=== PATIENT | female | born 1975 | race Caucasian/White ===

== ENCOUNTER 2021-05-12 15:18 | Outpatient (REF) | payer MEDICAID, SELFPAY ==
--- NOTE | 2021-05-12 15:00 | PAPFT_PTH ---
PATIENT: Deena Kuhn LOC: [facility] U#:[id number] AGE/SX: 46/F ROOM: RE05/12/[address]: Lilliana Solorzano : 1975 BED: DIS: 05/12/2021 SPEC #: [id number] RECD: 05/12/21 17:31 STATUS: DORENE BRITTANY #: [id number] DEE: 05/12/21 15:[address]: Lilliana Solorzano DEPT: [facility] Cytology RECD BY: Grace Pascual ENTERED: 05/12/21 17:32 SP TYPE: PAPFT BENY DR: Unknown,Unknown Tissues: 1 - CX/ENDOCX FOR PAP SMEARS Procedures: PAP THIN PREP/UVM Screening HPV DNA PROBE Comments: [id number]
[2021-05-14 15:08] LABS: Chlamydia Result Negative (Negative); GC Result Negative (Negative)
== END 2021-05-12 15:19 | disposition home or self-care (01) ==
LOC: LBN 15:18
PROVIDERS: Visit Provider Obstetrics & Gynecology Gynecology
DX: Z11.3 Encounter for screening for infections with a predominantly sexual mode of transmission (principal); Z12.4 Encounter for screening for malignant neoplasm of cervix; Z11.51 Encounter for screening for human papillomavirus (HPV)
CPT/HCPCS: 87491; 87591; 88142; 87624

== ENCOUNTER → 2021-11-24 01:34 | Outpatient (CLI) | payer MEDICAID, SELFPAY ==
--- NOTE | 2021-11-24 07:15 | DI.US_ITS ---
Exam(s) US PELVIS EXAM: US PELVIS CLINICAL HISTORY: fibroid uterus,D25.9 TECHNIQUE: Ultrasound of the pelvis was performed transabdominally. COMPARISON: No exams were available for comparison FINDINGS: UTERUS: Prominent size Measures 16 cm length x 10 cm AP x 14 cm wide. There is a very large fibroid centrally and fundal measuring approximately 11.7 x 11.0 x 8 cm.This pr events visualization the endometrium. Ovaries were also not able to be identified. CUL-DE-SAC: No free fluid evident. IMPRESSION: 1. The uterus is grossly enlarged, with measurements as above. 2. There is a large solitary 11.7 x 11.0 x 8 cm fibroid which occupies prominent area in the uterus a nd prevents visualization of the endometrium. 3. Ovaries were not able to be identified due to the grossly enlarged uterus. No free fluid evident. DATA REPOSITORY:
== END ==
PROVIDERS: Visit Provider Obstetrics & Gynecology
DX: D25.9 Leiomyoma of uterus, unspecified (principal); N85.2 Hypertrophy of uterus
CPT/HCPCS: 76856

== ENCOUNTER 2022-04-17 09:59 | Outpatient (REF) | payer MEDICAID, SELFPAY ==
--- NOTE | 2022-04-17 09:30 | ENDOMET_PTH ---
PATIENT: Deena Kuhn LOC: [facility] #:[id number] AGE/SX: 47/F ROOM: RE04/17/[address]: Lilliana Solorzano : 1975 BED: DIS: 04/17/2022 SPEC #: [id number] RECD: 04/17/22 12:49 STATUS: DORENE REChristopher #: [id number] DEE: 04/17/22 09:[address]: Lilliana Solorzano DEPT: Surgical Specimen RECD BY: Grace Pascual Tissues: 1 - ENDOMETRIUM BX/RUBEN Procedures: GROSS AND MICRO LEVEL 4 Comments: [id number]
== END 2022-04-17 10:00 | disposition home or self-care (01) ==
LOC: LBN 09:59
PROVIDERS: Visit Provider Obstetrics & Gynecology Gynecology
DX: D25.9 Leiomyoma of uterus, unspecified (principal); N84.0 Polyp of corpus uteri; N85.8 Other specified noninflammatory disorders of uterus
CPT/HCPCS: 88305

== ENCOUNTER 2022-06-12 12:39 | Outpatient (CLI) | payer MEDICAID, SELFPAY ==
[2022-06-12 12:43] LABS: TSH (W/Ref FT4) 2.29 uIU/mL (0.36-3.74)
== END 2022-06-12 12:40 | disposition home or self-care (01) ==
LOC: LBO 12:40
PROVIDERS: Visit Provider Obstetrics & Gynecology
DX: N92.0 Excessive and frequent menstruation with regular cycle (principal); N93.8 Other specified abnormal uterine and vaginal bleeding
CPT/HCPCS: 36415; 82670; 83001; 83520; 84443

== ENCOUNTER 2022-06-29 02:27 | Outpatient (CLI) | payer MEDICAID, SELFPAY ==
[2022-06-30 19:17] LABS: Estradiol 143 pg/mL (See Note)
[2022-07-01 18:30] LABS: Antimullerian Hormone 0.22 ng/mL (<2.6)
== END 2022-06-29 02:28 | disposition home or self-care (01) ==
LOC: LBO 02:27
PROVIDERS: Visit Provider Obstetrics & Gynecology
DX: N93.8 Other specified abnormal uterine and vaginal bleeding; N97.8 Female infertility of other origin; N92.5 Other specified irregular menstruation
CPT/HCPCS: 36415; 82670; 83520

== ENCOUNTER → 2023-07-28 03:18 | Outpatient (CLI) | payer MEDICAID, SELFPAY ==
--- NOTE | 2023-07-28 | DI.MAMMO_ITS ---
Exam(s) MAMMO SCREENING EXAM: MAMMO SCREENING CLINICAL HISTORY: Z12.31 Screening TECHNIQUE: Mammograms were interpreted according to the usual protocol including computer analysis w [employer] CAD system, tomosynthesis and C-view imaging. COMPARISON: Patient has outside examinations which are not yet available. FINDINGS: The breasts are composed of heterogeneously dense fibroglandular densities, Breast Density category C . No suspicious masses or suspicious microcalcifications are seen. No skin thickening or abnormal axillary lymph nodes are seen. IMPRESSION: BI-RADS Category 1, Negative mammogram. Yearly screening mammography is recommended. Breast Density Category C, heterogeneously Dense. The mammogram demonstrates the patient's breast tissue is dense. Dense breast tissue is very common a nd is not abnormal but dense breast tissue can make it harder to find cancer on a mammogram. Also, de nse breast tissue may increase breast cancer risk. This information about the result of the mammogram report was provided to the patient to raise their awareness. Use this report when you speak with the patient about their risks for breast cancer, which includes their family history. At that time, you may recommend additional screening tests (Ultrasound or MRI) as they might be useful based on their r isk. A negative radiographic report should not delay biopsy if a dominant or clinically suspicious mass is present. Up to ten percent of cancers are not identified on mammography. A negative report may reinforce clinical impression. Adenosis and dense breasts may obscure an underlying neoplasm. False positive reports average 6 to 10%.
== END ==
PROVIDERS: PCP Nurse Practitioner Family; Visit Provider Nurse Practitioner Family
DX: Z12.31 Encounter for screening mammogram for malignant neoplasm of breast (principal)
CPT/HCPCS: 77063; 77067

== ENCOUNTER → 2023-09-02 00:26 | Outpatient (CLI) | payer MEDICAID, SELFPAY ==
--- NOTE | 2023-09-02 07:00 | DI.US_ITS ---
Exam(s) US PELVIS TRANSVAGINAL EXAM: US PELVIS TRANSVAGINAL CLINICAL HISTORY: longstanding fibroids, fibroid uterus, D25.1. TECHNIQUE: Transabdominal and transvaginal pelvic ultrasound was performed using standard protocol. COMPARISON: US US PELVIS from 11/24/2021 FINDINGS: UTERUS: Position: Anteverted. Size: 19.0 long by 11.4 AP by 14.5 transverse cm Endometrium: The endometrial stripe could not be visualized secondary to the enlarged uterine fibroid . Myometrium: There is a large uterine fibroid occupying the body and fundus measuring at least 13.8 cm x 10.6 cm x 13.6 cm. This compares to 11.7 x 11.0 x 8 cm on the prior examination. Cervix: Nabothian cysts are present. Vasculature, there is prominence of the periuterine vessels suggesting pelvic congestion syndrome. OVARIES: The right ovary could not be seen on this examination. Left: 1.6 x 1.5 x 1.0 cm Cyst or mass: No suspicious cystic or solid masses. DOPPLER: Color: Symmetric and uniform flow to both ovaries. CUL-DE-SAC: Free fluid: There is a small amount of free fluid in the pelvis. Other: None. IMPRESSION: 1. Interval increase in size of large uterine fibroid since the prior examination from 11/24/2021 as d escribed above. 2. The endometrial stripe could not be visualized as it was obscured by the uterine fibroid. 3. The right ovary cannot be visualized sonographically. The left ovary is unremarkable. 4. Findings suggestive of pelvic congestion syndrome. DATA REPOSITORY:
--- NOTE | 2023-09-02 08:45 | DI.US_ITS ---
Exam(s) US HERNIA EXAM: US HERNIA CLINICAL HISTORY: symptomatic umbilical hernia, fibroid uterus, K42.9, D25.1. TECHNIQUE: Ultrasound was performed using standard protocol. COMPARISON: No exams were available for comparison FINDINGS: Sonographic assessment utilizing grayscale and color Doppler imaging was performed and targeted to th e area of clinical concern. There is a fat and fluid containing umbilical hernia. The mouth of the hernia measures 1.7 cm. IMPRESSION: Fat and fluid containing umbilical hernia. DATA REPOSITORY:
== END ==
PROVIDERS: PCP Nurse Practitioner Family; Visit Provider Obstetrics & Gynecology Gynecology
DX: D25.1 Intramural leiomyoma of uterus (principal); K42.9 Umbilical hernia without obstruction or gangrene
CPT/HCPCS: 76857; 76830; 76856

== ENCOUNTER 2023-09-02 12:47 | Outpatient (CLI) | payer MEDICAID, SELFPAY ==
[2023-09-02 09:10] LABS: Abs Immature Grans 0.03 10^3/uL (0.0-0.06); Absolute Basophil Count 0.05 10^3/uL (0.0-0.2); Absolute Eosinophil Count 0.06 10^3/uL (0.0-0.7); Absolute Lymphocyte Count 1.79 10^3/uL (1.2-3.4); Absolute Monocyte Count 0.61 10^3/uL (0.1-0.8); Absolute Neutrophil Count 5.77 10^3/uL (1.2-6.7); Basophils % 0.6 %; Eosinophils % 0.7 %; HCT 41.4 % (36.0-46.0); HGB 13.4 g/dL (11.2-15.7); Immature Grans % 0.4 %; Lymphocytes % 21.5 %; MCH 30.9 pg (27.0-33.0); MCHC 32.4 % (32.0-36.0); MCV 95 fL (80-95); MPV 11.5 fL (8.0-11.0); Monocytes % 7.3 %; Neutrophils % 69.5 %; Platelet Count 212 10^3/uL (130-400); RBC 4.34 10^6/uL (3.93-5.22); RDW 14.4 % (11.7-14.6); RDW-SD 50.4 fL; WBC 8.31 10^3/uL (4.4-10.8)
[2023-09-02 09:56] LABS: Hemoglobin A1C 5.4 % (<5.7)
[2023-09-02 10:33] LABS: ALT 19 U/L (14-59); AST 11 U/L (15-37); Albumin 3.4 g/dL (3.4-5.0); Alkaline Phosphatase 57 U/L (46-116); Anion Gap 4.8 mmol/L (3-11); BUN 18 mg/dL (7-18); Bilirubin, Total 0.26 mg/dL (0.2-1.0); CO2 30.2 mmol/L (21.0-32.0); CREATININE 0.9 mg/dL (0.55-1.02); Calcium 8.2 mg/dL (8.5-10.1); Calculated LDL 93 mg/dL (<100); Chloride 106 mmol/L (98-107); Cholesterol 159 mg/dL (<200); Estimated GFR 77.88 (mL/min/1.73m2); Glucose 101 mg/dL (74-106); HDL Cholesterol 55 mg/dL (40-60); Potassium 4.4 mmol/L (3.5-5.1); Sodium 141 mmol/L (136-145); TSH (W/Ref FT4) 2.04 uIU/mL (0.36-3.74); Total Protein 6.6 g/dL (6.4-8.2); Triglyceride 58 mg/dL (<150); Vitamin B12 465 pg/mL (193-986); Vitamin D 25 Total 17.7 ng/mL (30-100)
== END 2023-09-02 12:48 | disposition home or self-care (01) ==
LOC: LBO 12:51
PROVIDERS: PCP Nurse Practitioner Family; Visit Provider Nurse Practitioner Family
DX: I10 Essential (primary) hypertension (principal); E78.5 Hyperlipidemia, unspecified; E03.9 Hypothyroidism, unspecified; Z00.00 Encounter for general adult medical examination without abnormal findings
CPT/HCPCS: 36415; 80053; 80061; 82306; 82607; 83036; 84443; 85025

== ENCOUNTER → 2023-10-11 01:04 | Outpatient (CLI) | payer MEDICAID, SELFPAY ==
--- NOTE | 2023-10-11 08:30 | DI.US_ITS ---
APPROVED REPORT EXAM: Comprehensive 2D, Doppler, and color-flow Echocardiogram Patient Location: Out-Patient Mat Worker: Zain Eckert RDCS (AE) Indications: Abnormal EKG Conclusion Normal left ventricular wall thickness and chamber size. Ejection fraction is 65%. Wall motion is n ormal Normal right ventricular size and function Both atria are normal in size There are no structural valvular abnormalities Estimated right ventricular systolic pressure is 41 mmHg Wall motion Left Ventricle The left ventricle is normal size. Left ventricular systolic function is normal. The left ventricular ejection fraction is within the normal range. There is normal left ventricular wall thickness. There is normal LV segmental wall motion. The left ventricular diastolic function is normal. There is no v entricular septal defect visualized. LVEF is 65%. Right Ventricle The right ventricle is normal size. The right ventricular systolic function is normal. Atria The left atrium size is normal. The right atrium size is normal. The interatrial septum is intact wit h no evidence for an atrial septal defect. Aortic Valve The aortic valve is normal in structure. Aortic valve is trileaflet. There is no aortic valvular sten osis. No aortic regurgitation is present. Mitral Valve The mitral valve is normal in structure. No evidence of mitral valve stenosis. Trace mitral regurgita tion. Tricuspid Valve The tricuspid valve is normal in structure. There is no tricuspid valve stenosis. Mild tricuspid regu rgitation. The RVSP is 41.1 mmHg. Pulmonic Valve The pulmonary valve is normal in structure. There is no pulmonic valvular stenosis. There is no pulmo kennedy valvular regurgitation. Great Vessels The aortic root is normal in size. The ascending aorta is normal in size. Aortic arch is normal in ca liber. IVC is normal in size and collapses >50% with inspiration. Pericardium There is no pericardial effusion. 2D Dimensions IVSD d PLAX 0.49 cm F: 0.6-1.0 Ao Root d 2.60 cm F: 2.7 - 3.3 LVPW d PLAX 0.55 cm F: 0.6 - 1.0 Ao Asc Diam d 2.80 cm F: 2.3 - 3.1 LVID d PLAX 4.89 cm F: 3.8 - 5.2 LVDs 3.14 cm F: 2.2 - 3.5 LV EF Teichholz 65.2 % FS 35.79 % LV EDV (Teich) 112.5 mL LV ESV (Teich) 39.2 mL Stroke Vol Index (Teich) 44.16 M-Mode TAPSE 2.20 cm (M/F) >1.7 Auto EF LV EDV A4C 83.6 mL LV EDV A2C 84.6 mL LV EDV BP 83.7 mL LV ESV A4C 28.5 mL LV ESV A2C 28.6 mL LV ESV BP 28.5 mL LVEF(%) A4C 65.9 % LVEF(%) A2C 66.3 % LVEF(%) BP 65.9 % LV SV A4C 55.1 ml LV SV A2C 56.1 ml LV SV BP 55.1 ml LV CO A4C 2.9 L/min LV CO A2C 3.3 L/min LV CO BP 3.1 L/min HR A4C 53.01 BPM HR A2C 58.44 BPM LV EDV Index (BP) LA Volume LA Length A4C 4.6 cm LA Length A2C 4.9 cm LA Area A4C s 13.84 cm2 LA Area A2C s 16.15 cm2 LA Vol A4C A-L 35.23 mL LA Vol A2C A-L 44.73 mL LA Vol Biplane A-L 41.1 mL LA Vol/BSA A4C A-L LA Vol/BSA A2C A-L LA Vol/BSA BP A-L 24.8 mL/m2 LA Vol A4C MOD 33.7 mL LA Vol A2C MOD 42.3 mL LA Vol BP MOD 39.0 mL RA Volume RA Area A4C 11.8 cm2 RA ESV A4C (A-L) 27.9mL RA Vol/BSA A4C A-L RA Length A4C 4.3 cm RA ESV A4C (MOD) 26.7mL LV Diastology MV E' medial 0.110 (>0.07 m/s) MV E Vmax 0.88 (0.4-1.3 m/s) MV E/E' MED 8.06 (<14) MV A Vmax 0.70 (0.4-1.3 m/s) MV E' lateral 0.117 (>0.1 m/s) E/A Ratio 1.3 MV E/E' LAT 7.53 (<14) MV E' Average 0.113 m/s MV E/E'(average) 7.79 Aortic Valve AoV Vmax 1.28 m/s LVOT Vmax 0.87 m/s AoV Peak Grad 6.5 mmHg LVOT Peak Grad 3.0 mmHg AoV Area (Vmax) 2.24 cm2 LVOT VTI 0.224 m AoV VTI 0.349 m LVOT Mean Grad 1.7 mmHg AoV Mean Aditya. 0.91 m/s LVOT SV 73.39 mL AoV Mean Grad 3.8 mmHg LVOT Diam s 2.00 cm AoV Area (VTI) 2.10 cm2 AV Regurg Peak Gr. 6.52 mmHg Velocity Ratio 0.68 Mitral Valve MV DT 192 (160-240 msec) MV Vmax TIPS 0.88 m/s MV Mean Grad 1.0 (<2mmHg) MV VTI 0.334 m Pulmonary Valve PV Vmax 0.69 (0.5-1.5 m/s) RVOT Vmax 0.62 m/s PV Peak Grad 1.9 mmHg RVOT Peak Gr. 1.5 mmHg PV Mean Aditya 0.55 m/s RVOT VTI 0.112 m PV Mean Grad 1.3 mmHg RVOT Mean Gr. 0.7 mmHg Tricuspid Valve RA Pressure 3.00 mmHg TR Vmax 3.09 m/s TR Peak Grad 38.1 mmHg RVSP (TR) 41.1 mmHg
== END ==
PROVIDERS: PCP Nurse Practitioner Family; Visit Provider Nurse Practitioner Family
DX: R94.31 Abnormal electrocardiogram [ECG] [EKG] (principal)
CPT/HCPCS: 93306